=== PATIENT | male | born 1980 | race Two or more races ===

== ENCOUNTER 2016-10-24 16:21 | Emergency (ER) | payer SELFPAY ==
[~2016-10-24] VITALS: Ht 180.3 cm; Wt 98.4 kg
[2016-10-24 16:25] VITALS: BP 155/79
[2016-10-24] MEDS ORDERED: DIPHTH,PERTUSS(ACELL),TET TOX 0.5 ML DISP.SYRIN. VAX IM ONE (17:00)
[2016-10-24] MEDS ORDERED: HYDR-971 PO (17:21)
--- NOTE | 2016-10-24 17:22 | PHYS DOC ---
Past Medical History Past Medical History: No Pertinent History Past Surgical History: No Surgical History Alcohol Use: Occasionally Drug Use: None Adult General Chief Complaint Chief Complaint: HAND PROBLEM HPI HPI Patient is a 35 year old male who presents with mild right hand pain that began 3 days ago after punching a wall. He is right-hand dominant Review of Systems Review of Systems Constitutional: Denies fever or chills [] Musculoskeletal: Right hand pain Integument: Denies rash or skin lesions [] Neurologic: Denies headache, focal weakness or sensory changes [] Endocrine: Denies polyuria or polydipsia [] Current Medications Current Medications Current Medications Medications (Trade) Dose Ordered Sig/Handy Start Time Stop Time Status Last Admin Dose Admin Diphtheria/ Tetanus/Acell Pertussis (Boostrix) 0.5 ml ONCE ONCE 10/24/16 17:00 10/24/16 17:01 DC 10/24/16 16:58 0.5 ML Allergies Allergies Allergies Coded Allergies Type Severity Reaction Last Updated Verified No Known Drug Allergies 03/30/14 No Physical Exam Physical Exam Constitutional: Well developed, well nourished, no acute distress, non-toxic appearance. [] Extremities: Right dorsal hand with mild swelling and bruising. Tenderness on palpation of the right dorsal hand third fourth and fifth metacarpals. Limited range of motion to the right hand due to pain and swelling. +2 right radial pulse. Cap refill less than 2 seconds the right fingers. Adequate ulna radial and medial sensation to the right hand. Neurologic: Alert and oriented X 3, normal motor function, normal sensory function, no focal deficits noted. [] Psychologic: Affect normal, judgement normal, mood normal. [] Current Patient Data Vital Signs Vital Signs Date Time Temp Pulse Resp B/P Pulse Ox O2 Delivery O2 Flow Rate FiO2 10/24/16 16:25 97.8 69 18 96 Room Air 97.8 EKG EKG [] Radiology/Procedures Radiology/Procedures [] Course & Med Decision Making Course & Med Decision Making Pertinent Labs and Imaging studies reviewed. (See chart for details) Patient is in the ED with right hand pain after punching a wall 3 days ago. Given tetanus in the Ed. Right hand x-rays interpreted by Dr. Sands and noted for fifth Metacarpal fracture. Patient was placed in a ulnar gutter splint by the ED RN. Neurovascular exam done by me is normal, cap refill less than 2 seconds. Ice elevation encouraged. Follow-up with orthopedic doctor by calling his office today or tomorrow for follow-up. Provided return precautions and discharged in stable condition. Nazario Disclaimer Nazario Disclaimer This electronic medical record was generated, in whole or in part, using a voice recognition dictation system. Departure Departure Impression: Primary Impression: Fracture of fifth metacarpal bone Disposition: HOME, SELF-CARE Condition: STABLE Referrals: NO PCP (PCP) JOSE E GOLD MD Call his office tomorrow for follow-up appointment Patient Instructions: Hand Fracture, Fifth Metacarpal Additional Instructions: You were seen for right fifth metacarpal fracture. Keep the affected extremity iced and elevated. Follow-up with orthopedic doctor provided by calling his office tomorrow morning. Scripts Hydrocodone/Apap 5-325 ([place] 5-325 Tablet)1 Each Tablet1-2 Tab PO Q4-6HRS #20 TAB Prov:TIMOTEO BOLAÑOS APRN 10/24/16 Problem Qualifiers Primary Impression: Fracture of fifth metacarpal bone Encounter type: initial encounter Fracture type: closed Metacarpal location : other portion of metacarpal Fracture alignment: nondisplaced Laterality: right Qualified Code: S62.396A - Other fracture of fifth metacarpal bone, right hand, initial encounter for closed fracture TIMOTEO BOLAÑOS APRN Oct 24, 2016 17:22
--- NOTE | 2016-10-25 08:17 | RAD ---
Right hand, 3 views, 10/24/2016: History: Hand injury pain There is an acute fracture of the distal fifth metacarpal. There is mild volar angulation of the distal fracture fragment without significant displacement. A fracture line involves the fifth MCP joint. No other acute fracture or dislocation is identified. There is deformity of the terminal estefany of the distal phalanges of the middle and ring fingers compatible with old fractures. IMPRESSION: Acute boxers type fracture of the distal fifth metacarpal.
== END 2016-10-24 17:32 | disposition home or self-care (01) ==
LOC: ER 16:21
DX: S62.396A Other fracture of fifth metacarpal bone, right hand, initial encounter for closed fracture (principal); W22.01XA Walked into wall, initial encounter; Y93.89 Activity, other specified; Y92.89 Other specified places as the place of occurrence of the external cause; Y99.8 Other external cause status
CPT/HCPCS: 29125; 73130; 90471; 90715; 99284-25